=== PATIENT | female | born 1990 | race Caucasian/White ===

== ENCOUNTER 2022-01-26 19:50 | Observation (INO) | payer SELFPAY ==
[~2022-01-26] VITALS: Ht 154.9 cm; Wt 65.5 kg
[2022-01-26] MEDS: ceFAZolin SOD 2 GM in IV 1 EA IV ONE ×2 (10:39→13:14)
[2022-01-26] MEDS: buPROPion 100 MG TAB PO SCH (18:00)
[2022-01-26 19:50] VITALS: BP 161/85
[~2022-01-26 19:50] MED LIST: ACETAMINOPHEN 1000MG 100ML IV BTL (OFIRMEV) (J0131 PER 10MG) As Ordered ONE; ACETAMINOPHEN TAB 650MG DOSE (2X325MG) PO PRN; B-12100010 PO; BIOT1TAB5 PO; BUPIVACAINE HCL 0.25% 10ML VIAL As Ordered ONE; BUPIVACAINE LIPOSOME/PF 1.3% 20ML VIAL (13.3MG/ML)(EXPAREL) As Ordered ONE; BUPR-69 PO; CYCL-707 PO; DEXTROAMP-AMPHETAMIN; DRON2.5C11 PO; GENTAMICIN SULF 80MG/2ML VIAL As Ordered ONE; HYDROMORPHONE HCL 0.5 MG/ 0.5 ML SYRINGE (J1170 PER 1) IV PRN; HYDROmorphone HCL 2MG/ML 1ML VIAL As Ordered ONE; IRON27TA2 PO; KETOROLAC 60MG 2ML VIAL As Ordered ONE; LEVO100T5 PO; LIDOCAINE 2% 100MG/5ML SDV (FOR ANES.) As Ordered ONE; LIOT25TA8 PO; LR 1,000 ML IV SCH; METOCLOPRAMIDE INJ 10MG/2ML VIAL (J2765 PER 1) As Ordered ONE; MIDAZOLAM INJ 2MG/2ML VIAL (J2250 PER 1MG) As Ordered ONE; MUPI2OI NARES; ONDANSETRON 4MG 2ML VIAL As Ordered ONE; ONDANSETRON 4MG 2ML VIAL IV PRN; OYST1TAB PO; PANT40TA29 PO; PERCOCET 5MG/325MG TAB PO PRN; PROMETHAZINE 25MG/ML 1ML VIAL IV STA; QC F0.52 PO; ROCURONIUM BROMIDE 50 MG/5 ML VIAL As Ordered ONE; SCOPOLAMINE 1MG TRANSDERMAL PATCH TOP ONE; SERT50TA29 PO; VITA100093 PO; ZIPR40CA20 PO; dexameTHASONE 4 MG/ML 1ML VIAL (J1100 PER 1MG) As Ordered ONE; fentaNYL 100 MCG/2 ML INJECTION As Ordered ONE; fentaNYL 100 MCG/2 ML INJECTION IV PRN; oxyCODONE 5MG TAB PO PRN; propofoL 200 MG/20 ML VIAL As Ordered ONE
[2022-01-26 20:20] VITALS: BP 152/95
[2022-01-26 20:50] VITALS: BP 148/92
[2022-01-26] MEDS ORDERED: ADDE20TA PO (20:50)
[2022-01-26] MEDS ORDERED: ACET-897 PO (20:50)
[2022-01-26] MEDS ORDERED: HOME MED LIST COMPLETE! XX SCH (20:55)
[2022-01-26] MEDS ORDERED: CYCLOBENZAPRINE 10MG TABLET PO SCH (21:00)
[2022-01-26] MEDS ORDERED: ZIPRASIDONE 20MG CAPSULE (GEODON) PO SCH (21:00)
[2022-01-26 21:20] VITALS: BP 141/89
[2022-01-26 22:20] VITALS: BP 124/80
[2022-01-26 23:20] VITALS: BP 156/89
[2022-01-26] MEDS: DRONABINOL 2.5MG CAP (MARINOL) PO SCH (23:21)
[2022-01-26] MEDS: traMADol 50 MG TAB PO PRN (23:26)
[2022-01-26] MEDS: ceFAZolin SOD 1 GM in D5W MINI-BAG PLUS 50 ML IV SCH (23:53)
[2022-01-27 00:20] VITALS: BP 129/72
[2022-01-27] MEDS: traMADol 50 MG TAB PO PRN ×2 (04:42→11:18)
[2022-01-27] MEDS: ceFAZolin SOD 1 GM in D5W MINI-BAG PLUS 50 ML IV SCH (04:43)
[2022-01-27 05:13] VITALS: BP 152/79
[2022-01-27] MEDS: buPROPion 100 MG TAB PO SCH ×2 (05:37→09:07)
[2022-01-27] MEDS ORDERED: LEVOTHYROXINE 100MCG TABLET (0.1MG) PO SCH (06:00)
[2022-01-27] MEDS ORDERED: LIOTHYRONINE 25 MCG TAB PO SCH (09:00)
[2022-01-27] MEDS ORDERED: CALCIUM/VITAMIN D 500 MG TAB PO SCH (09:00)
[2022-01-27] MEDS ORDERED: ADDERALL 5 MG TAB PO SCH (09:00)
[2022-01-27] MEDS ORDERED: CYANOCOBALAMIN 500 MCG TAB PO SCH (09:00)
[2022-01-27] MEDS ORDERED: VITAMIN D 1,000 INTERNATIONAL UNITS TABLET PO SCH (09:00)
[2022-01-27] MEDS ORDERED: FERROUS GLUCONATE 324 MG TAB PO SCH ×2 (09:00)
[2022-01-27] MEDS ORDERED: PANTOPRAZOLE 40MG TAB (PROTONIX) PO SCH (09:00)
[2022-01-27] MEDS ORDERED: SERTRALINE HCL 50 MG TAB PO SCH (09:00)
[2022-01-27] MEDS ORDERED: PERC5TAB12 PO (09:29)
[2022-01-27 10:00] VITALS: BP 150/80
[2022-01-27] MEDS: DRONABINOL 2.5MG CAP (MARINOL) PO SCH (11:17)
== END 2022-01-27 12:05 | disposition home or self-care (01) ==
LOC: M SDC 19:50 → M MS5PR 19:51 → M SDC 20:06 → M MS5PR 20:06
PROVIDERS: ADMIT Plastic Surgery Surgery of the Hand; ATTEND Plastic Surgery Surgery of the Hand
DX: N64.81 Ptosis of breast (principal); L98.7 Excessive and redundant skin and subcutaneous tissue; Z98.84 Bariatric surgery status; E03.9 Hypothyroidism, unspecified; K21.9 Gastro-esophageal reflux disease without esophagitis; F12.10 Cannabis abuse, uncomplicated; G43.909 Migraine, unspecified, not intractable, without status migrainosus; Z79.899 Other long term (current) drug therapy
CPT/HCPCS: 15836; 19316; 81025; 88300; 88302; 96365; 96366; C9290; J0131; J0690; J1100; J1170; J1580; J1885; J2250; J2405; J2550; J2765; J3010